=== PATIENT | female | born 1965 | race Caucasian/White ===

== ENCOUNTER 2020-08-05 10:22 | Emergency (ER) | payer MEDICARE, OTHER ==
[~2020-08-05] VITALS: Ht 167.6 cm; Wt 77.1 kg
[~2020-08-05 10:22] MED LIST: ACETAMINOPHEN325 M1 PO; BACLOFEN10 MG PO; BACLOFEN5 GM PO; BISACODYL10 MG PR; BUPRENORPHINE HC2 MG SL; BUSPIRONE HCL15 MG PO; CENTRUM SILVER1 EAC3 PO; CLONAZEPAM0.5 MG; CLONAZEPAM1 MG PO; COUMADIN4 MG PO; DIGOXIN125 MCG PO; DILTIAZEM ER240 MG PO; FENTANYL1 EAC2 TD; FLOVENT HFA12 G1 INH; GABAPENTIN600 MG PO; KLOR-CON20 MEQ PO; LEVOTHYROXINE75 MCG PO; MAG-OXIDE400 MG PO; METOPROLOL TART25 MG PO; MIRALAX17 GM PO; NORCO 7.5-3251 EACH PO; ONDANSETRON HCL8 MG PO; OXYCODONE HCL5 MG PO; PRAVASTATIN SOD40 MG PO; PROTONIX40 MG PO; SENNOSIDES-DOC1 EACH PO; WARFARIN SODIUM6 MG PO; ZYPREXA10 MG PO
[2020-08-05] MEDS ORDERED: COL-RITE100 MG PO (10:44)
[2020-08-05] MEDS ORDERED: BRIMONIDINE 0.110 ML OP (10:44)
[2020-08-05] MEDS ORDERED: FUROSEMIDE20 MG PO (10:45)
== END 2020-08-05 12:55 | disposition home or self-care (01) ==
LOC: ED 10:22
DX: M79.661 Pain in right lower leg (principal); I10 Essential (primary) hypertension; I25.2 Old myocardial infarction; E03.9 Hypothyroidism, unspecified; Z87.891 Personal history of nicotine dependence; Z88.8 Allergy status to other drugs, medicaments and biological substances; Z88.5 Allergy status to narcotic agent; Z79.899 Other long term (current) drug therapy; Z79.01 Long term (current) use of anticoagulants
CPT/HCPCS: 80053; 85025; 85610; 85730; 99283

== ENCOUNTER 2022-06-12 01:20 | Emergency (ER) | payer MEDICARE, OTHER ==
[~2022-06-12] VITALS: Ht 167.6 cm; Wt 64.0 kg
[~2022-06-12 01:20] MED LIST changes: +BRIMONIDINE 0.110 ML OP; +COL-RITE100 MG PO; +FUROSEMIDE20 MG PO
[2022-06-12] MEDS ORDERED: ULTRAM50 MG PO (02:51)
== END 2022-06-12 03:26 | disposition home or self-care (01) ==
LOC: ED 01:20
DX: S00.83XA Contusion of other part of head, initial encounter (principal); I25.2 Old myocardial infarction; I10 Essential (primary) hypertension; F31.9 Bipolar disorder, unspecified; I48.92 Unspecified atrial flutter; M25.562 Pain in left knee; I69.351 Hemiplegia and hemiparesis following cerebral infarction affecting right dominant side; E03.9 Hypothyroidism, unspecified; R13.0 Aphagia; Z87.891 Personal history of nicotine dependence; Z95.0 Presence of cardiac pacemaker; Z79.01 Long term (current) use of anticoagulants; Z79.899 Other long term (current) drug therapy; Z86.711 Personal history of pulmonary embolism; Z86.718 Personal history of other venous thrombosis and embolism; Z88.5 Allergy status to narcotic agent; W05.0XXA Fall from non-moving wheelchair, initial encounter; Y92.129 Unspecified place in nursing home as the place of occurrence of the external cause
CPT/HCPCS: 36415; 70450; 72125; 73560; 80053; 81003; 84703; 85025; 85610; 87502; 96374; 99284-25; A9270; J2270; U0003

== ENCOUNTER 2022-07-29 22:12 | Emergency (ER) | payer MEDICARE, OTHER ==
[~2022-07-29] VITALS: Ht 167.6 cm; Wt 64.0 kg
[~2022-07-29 22:12] MED LIST changes: +ULTRAM50 MG PO
[2022-07-29] MEDS ORDERED: BENZTROPINE ME0.5 MG PO (23:03)
[2022-07-29] MEDS ORDERED: FLUPHENAZINE HC10 MG PO (23:05)
[2022-07-29] MEDS ORDERED: OLANZAPINE15 MG PO (23:06)
[2022-07-29] MEDS ORDERED: OLANZAPINE5 MG PO (23:07)
[2022-07-29] MEDS ORDERED: TRAZODONE HCL50 MG PO (23:09)
[2022-07-29] MEDS ORDERED: WARFARIN SODIUM4 MG PO (23:09)
== END 2022-07-30 00:50 | disposition home or self-care (01) ==
LOC: ED 22:12
DX: T14.8XXA Other injury of unspecified body region, initial encounter (principal); W17.89XA Other fall from one level to another, initial encounter; I25.2 Old myocardial infarction; I10 Essential (primary) hypertension; I48.92 Unspecified atrial flutter; E03.9 Hypothyroidism, unspecified; Z87.891 Personal history of nicotine dependence; Z88.8 Allergy status to other drugs, medicaments and biological substances; Z88.5 Allergy status to narcotic agent; Z79.899 Other long term (current) drug therapy; Z79.01 Long term (current) use of anticoagulants; R07.81 Pleurodynia; M54.6 Pain in thoracic spine; M54.2 Cervicalgia
CPT/HCPCS: 36415; 70450; 71260; 72125; 74177; 80053; 85025; 86850; 86870; 86900; 86901; 99284-25; G0480; Q9967

== ENCOUNTER 2023-02-08 19:43 | Emergency (ER) | payer MEDICARE, OTHER ==
[~2023-02-08] VITALS: Ht 167.6 cm; Wt 64.0 kg
--- OUTSIDE RECORDS SUMMARY | ~2023-02-08 | XMS | Continuity of Care Document ---
Demographics + + + | Address | [address] | | | [place] [address] | + + + | Preferred Language | Unknown | + + + | Marital Status | | + + + | Synagogue Affiliation | Unknown | + + + | Race | White | + + + | Ethnic Group | Not or | + + + Author + + + | Author | [facility] | + + + | Organization | [facility] | + + + | Address | [address] | | | [place] [address] | + + + | Phone | | + + + Care Team Providers + + + + | [facility] Name | Role | Phone | + + + + Unavailable | Unavailable | + + + + Allergies No information. Encounters No information. Functional Status No information. Immunizations No information. Medications No information. 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 Results/Labs No information. Social History +--------+ + + | date | description | facility | +--------+ + + Vital Signs No information."
[~2023-02-08 19:43] MED LIST changes: +BENZTROPINE ME0.5 MG PO; +FLUPHENAZINE HC10 MG PO; +OLANZAPINE15 MG PO; +OLANZAPINE5 MG PO; +TRAZODONE HCL50 MG PO; +WARFARIN SODIUM4 MG PO
--- OUTSIDE RECORDS SUMMARY | 2023-02-08 19:46 | XMS ---
PreManage Notification: CATRACHITA RUBI Security Cardiovascular Disease Specialist Events No recent Security Events currently on file CRITERIA MET - [facility] CARE PROVIDERS Priya Rashid Security Solutions Engineer/Women'S Ministry Director 01/09/2023-Current PHONE: [phone] CLAUDIA MURRY Internal Medicine 08/06/2020-Current PHONE: Unknown -Abran- Dentist: Caregivers Non Medical [facility] PHONE: [phone] Axel has no Care Guidelines for this patient. E.D. VISIT COUNT (12 MO.) [address] [facility] TOTAL 3 NOTE: Visits indicate total known visits. ED/UCC VISIT TRACKING (12 MO.) 02/08/2023 19:43 [facility] TYPE: Emergency COMPLAINT: - POSS UTI 07/29/2022 22:13 [facility] TYPE: Emergency COMPLAINT: - FALL DIAGNOSES: - Allergy status to narcotic agent - Allergy status to other drugs, medicaments and biological substances - Cervicalgia - Essential (primary) hypertension - Hypothyroidism, unspecified - half-way (current) use of anticoagulants - Old myocardial infarction - Other fall from one level to another, initial encounter - Other injury of unspecified body region, initial encounter - Other correction (current) drug therapy - Pain in thoracic spine - Pelvic and perineal pain - Personal history of nicotine dependence - Pleurodynia - Unspecified atrial flutter 06/12/2022 01:20 [facility] [place] TYPE: Emergency COMPLAINT: - HEAD INJURY DIAGNOSES: - Allergy status to narcotic agent - Aphagia - Bipolar disorder, unspecified - Contusion of other part of head, initial encounter - Essential (primary) hypertension - Fall from non-moving wheelchair, initial encounter - Hemiplegia and hemiparesis following cerebral infarction affecting right dominant side - Hypothyroidism, unspecified - half-way (current) use of anticoagulants - Old myocardial infarction - Other correction (current) drug therapy - Pain in left knee - Personal history of nicotine dependence - Personal history of other venous thrombosis and embolism - Personal history of pulmonary embolism - Presence of cardiac pacemaker - Unspecified atrial flutter - Unspecified injury of face, initial encounter - Unspecified injury of head, initial encounter - Unspecified place in half-way as the place of occurrence of the external cause INPATIENT VISIT TRACKING (12 MO.) No inpatient visits to display in this time frame [email or web address]
[2023-02-08 20:25] LABS: BILIRUBIN, URINE NEGATIVE (negative); BLOOD/HGB, URINE NEGATIVE (Negative); KETONE, URINE NEGATIVE (Negative); LEUK ESTERASE, URINE NEGATIVE (negative); NITRITE, URINE NEGATIVE (negative)
[2023-02-08 20:28] LABS: AMPHETAMINES, UR NEGATIVE (NEGATIVE); BARBITURATES, UR NEGATIVE (NEGATIVE); BENZODIAZEPINES, UR NEGATIVE (NEGATIVE); BUPRENORPHINE,UR NEGATIVE (NEGATIVE); COCAINE, UR NEGATIVE (NEGATIVE); MARIJUANA (THC), UR NEGATIVE (NEGATIVE); MDMA, UR NEGATIVE (NEGATIVE); METHADONE, UR NEGATIVE (NEGATIVE); METHAMPHETAMINE, UR NEGATIVE (NEGATIVE); OPIATES, UR NEGATIVE (NEGATIVE); OXYCODONE, UR NEGATIVE (NEGATIVE); PHENCYCLIDINE, UR NEGATIVE (NEGATIVE); TRICYCLIC ANTIDEPRESSANT, UR NEGATIVE (NEGATIVE)
[2023-02-08 20:29] LABS: EPITHELIAL CELLS, URINE SQUAMOUS 2+ /lpf (0-1+)
[2023-02-08 20:31] LABS: BACTERIA, URINE RARE /hpf (negative); CASTS, URINE NONE SEEN \\lpf; CRYSTALS, URINE NONE SEEN (0-1+); REFLEX CULTURE, URINE No (No)
[2023-02-08 20:37] LABS: HEMOGLOBIN 14.1 g/dL (12.0-18.0)
[2023-02-08 20:39] LABS: BASOPHILS 0.5 % (0-2); EOSINOPHILS 1.5 % (0-6); HEMATOCRIT 42.8 % (35.0-50.0); LYMPHOCYTES 32.4 % (24-44); MCH 31.5 (27-36); MCHC 33.1 g/dl (30-36); MCV 95.3 fl (81-99); MONOCYTES 8.9 % (0-12); NEUTROPHILS 56.7 % (39-80); PLATELET COUNT 150 K/uL (140-440); RBC 4.49 M/ul (4.3-5.7); RDW 14.2 (10.5-15.0)
[2023-02-08 21:05] LABS: ALBUMIN 3.6 g/dL (3.4-5.0); ALBUMIN/GLOBULIN RATIO 1.09 (1.1-2.4); ANION GAP 14.1 (7-21); BILIRUBIN, TOTAL 0.4 ng/dL (0.2-1.0); BUN/CREATININE RATIO 18.66 (6.0-28.6); CALCIUM 9.6 mg/dL (8.5-10.1); CREATININE, SERUM 0.75 mg/dL (0.55-1.02); POTASSIUM 4.1 mmol/L (3.5-5.1); PROTEIN, TOTAL 6.9 g/dL (6.4-8.2)
[2023-02-08 21:06] LABS: ACETAMINOPHEN 0 ug/mL (10-30); ALCOHOL, MEDICAL <3 ng/dL (<3); SALICYLATE 3.7 mg/dL (2.8-20.0)
[2023-02-09] MEDS ORDERED: CEPHALEXIN500 M1 PO (10:35)
[2023-02-09 10:37] LABS: INR 1.29 (0.80-1.30); PROTIME 15.6 Sec (11.2-14.2)
[2023-02-09] MEDS ORDERED: POTASSIUM CHLO20 ME1 (10:54)
[2023-02-09] MEDS ORDERED: LEVOTHYROXINE100 MCG (10:54)
[2023-02-09] MEDS ORDERED: BRIMONIDINE TART5 ML (10:55)
[2023-02-10 12:09] VITALS: BP 115/77
== END 2023-02-10 12:10 | disposition home or self-care (01) ==
LOC: ED 19:43
PROVIDERS: Emergency Medicine; Internal Medicine
DX: L24.A2 Irritant contact dermatitis due to fecal, urinary or dual incontinence (principal); F31.9 Bipolar disorder, unspecified; I69.351 Hemiplegia and hemiparesis following cerebral infarction affecting right dominant side; Z87.891 Personal history of nicotine dependence; Z95.0 Presence of cardiac pacemaker; Z88.5 Allergy status to narcotic agent; Z79.01 Long term (current) use of anticoagulants; Z79.899 Other long term (current) drug therapy; Z79.890 Hormone replacement therapy
CPT/HCPCS: 36415; 51702; 80053; 81001; 84443; 85025; 85610; 99285-25; A9270; G0480; J7121

== ENCOUNTER 2023-02-13 16:29 | Emergency (ER) | payer MEDICARE, OTHER ==
[~2023-02-13] VITALS: Ht 167.6 cm; Wt 64.0 kg
[~2023-02-13 16:29] MED LIST changes: +BRIMONIDINE TART5 ML; +CEPHALEXIN500 M1 PO; +LEVOTHYROXINE100 MCG; +POTASSIUM CHLO20 ME1
[2023-02-13 16:52] LABS: BASOPHILS 0.9 % (0-2); EOSINOPHILS 1.1 % (0-6); HEMOGLOBIN 13.5 g/dL (12.0-18.0); LYMPHOCYTES 41.9 % (24-44); MCH 31.4 (27-36); MONOCYTES 11.4 % (0-12); NEUTROPHILS 44.7 % (39-80); PLATELET COUNT 162 K/uL (140-440); RBC 4.32 M/ul (4.3-5.7); RDW 14.1 (10.5-15.0)
[2023-02-13 17:15] LABS: ACETAMINOPHEN 0 ug/mL (10-30); ALBUMIN 3.6 g/dL (3.4-5.0); ALBUMIN/GLOBULIN RATIO 1.09 (1.1-2.4); ALCOHOL, MEDICAL <3 ng/dL (<3); ALKALINE PHOSPHATASE 93 U/L (46-116); ALT (SGPT) 32 U/L (14-59); ANION GAP 12.9 (7-21); AST (SGOT) 45 U/L (15-37); BILIRUBIN, TOTAL 0.3 ng/dL (0.2-1.0); BUN/CREATININE RATIO 16.39 (6.0-28.6); CALCIUM 10.1 mg/dL (8.5-10.1); CARBON DIOXIDE 25 mmol/L (21-32); CHLORIDE 100 mmol/L (98-107); CREATININE, SERUM 0.61 mg/dL (0.55-1.02); GLOMERULAR FILTRATION RATE,EST 103 mL/min (>60); POTASSIUM 3.9 mmol/L (3.5-5.1); PROTEIN, TOTAL 6.9 g/dL (6.4-8.2); SALICYLATE 3.8 mg/dL (2.8-20.0); UREA NITROGEN 10 mg/dL (7-18)
[2023-02-13 18:55] LABS: BILIRUBIN, URINE NEGATIVE (negative); BLOOD/HGB, URINE NEGATIVE (Negative); KETONE, URINE NEGATIVE (Negative); LEUK ESTERASE, URINE NEGATIVE (negative); NITRITE, URINE NEGATIVE (negative)
[2023-02-13 18:59] LABS: AMPHETAMINES, UR NEGATIVE (NEGATIVE); BARBITURATES, UR NEGATIVE (NEGATIVE); BENZODIAZEPINES, UR NEGATIVE (NEGATIVE); BUPRENORPHINE,UR NEGATIVE (NEGATIVE); COCAINE, UR NEGATIVE (NEGATIVE); MARIJUANA (THC), UR NEGATIVE (NEGATIVE); MDMA, UR NEGATIVE (NEGATIVE); METHADONE, UR NEGATIVE (NEGATIVE); METHAMPHETAMINE, UR NEGATIVE (NEGATIVE); OPIATES, UR NEGATIVE (NEGATIVE); OXYCODONE, UR NEGATIVE (NEGATIVE); PHENCYCLIDINE, UR NEGATIVE (NEGATIVE); TRICYCLIC ANTIDEPRESSANT, UR NEGATIVE (NEGATIVE)
[2023-02-13 19:46] LABS: INFLUENZA B NAA NEGATIVE (NEGATIVE); RESPIRATORY SYNCYTIAL VIR NAA NEGATIVE (NEGATIVE)
--- OUTSIDE RECORDS SUMMARY | 2023-02-15 11:13 | XMS ---
PreManage Notification: CATRACHITA RUBI Security Planishing Hammer Operator Events No recent Security Events currently on file CRITERIA MET - [facility] - [facility] - 2 Visits in 30 Days CARE PROVIDERS Priya Rashid Quality Assurance Supervisor Body/Beverage Distiller 01/09/2023-Current PHONE: [phone] CLAUDIA MURRY Internal Medicine 08/06/2020-Current PHONE: Unknown -Abran- Dentist: [facility] PHONE: [phone] Axel has no Care Guidelines for this patient. E.D. VISIT COUNT (12 MO.) [address] [facility] TOTAL 4 NOTE: Visits indicate total known visits. ED/UCC VISIT TRACKING (12 MO.) 02/13/2023 16:29 [facility] TYPE: Emergency COMPLAINT: - PSYCH EVENT 02/08/2023 19:43 [facility] TYPE: Emergency COMPLAINT: - POSS UTI DIAGNOSES: - Allergy status to narcotic agent - Bipolar disorder, unspecified - Dysuria - Hemiplegia and hemiparesis following cerebral infarction affecting right dominant side - Hormone replacement therapy - Irritant contact dermatitis due to fecal, urinary or dual incontinence - exterminator termite (current) use of anticoagulants - Other detention (current) drug therapy - Personal history of nicotine dependence - Presence of cardiac pacemaker 07/29/2022 22:13 [facility] TYPE: Emergency COMPLAINT: - FALL DIAGNOSES: - Allergy status to narcotic agent - Allergy status to other drugs, medicaments and biological substances - Cervicalgia - Essential (primary) hypertension - Hypothyroidism, unspecified - exterminator termite (current) use of anticoagulants - Old myocardial infarction - Other fall from one level to another, initial encounter - Other injury of unspecified body region, initial encounter - Other detention (current) drug therapy - Pain in thoracic [...] right dominant side - Hypothyroidism, unspecified - alf (current) use of anticoagulants - Old myocardial infarction - Other detention (current) drug therapy - Pain in left knee - Personal history of nicotine dependence - Personal history of other venous thrombosis and embolism - Personal history of pulmonary embolism - Presence of cardiac pacemaker - Unspecified atrial flutter - Unspecified injury of face, initial encounter - Unspecified injury of head, initial encounter - Unspecified place in [facility] as the place of occurrence of the external cause INPATIENT VISIT TRACKING (12 MO.) No inpatient visits to display in this time frame [email or web address]
[2023-02-15 22:48] LABS: BASOPHILS 0.4 % (0-2); HEMATOCRIT 46.1 % (35.0-50.0); HEMOGLOBIN 15.2 g/dL (12.0-18.0); MCH 31.6 (27-36); MCHC 32.9 g/dl (30-36); MCV 95.9 fl (81-99); MONOCYTES 10.8 % (0-12); NEUTROPHILS 52.8 % (39-80); PLATELET COUNT 180 K/uL (140-440); RDW 14.6 (10.5-15.0)
[2023-02-15 22:58] LABS: INR 2.8 (0.80-1.30); PROTIME 28.6 Sec (11.2-14.2)
[2023-02-15 23:03] LABS: ALBUMIN 3.1 g/dL (3.4-5.0); ALBUMIN/GLOBULIN RATIO 0.86 (1.1-2.4); ANION GAP 14.4 (7-21); BILIRUBIN, TOTAL 0.3 ng/dL (0.2-1.0); BUN/CREATININE RATIO 7.24 (6.0-28.6); CALCIUM 9.3 mg/dL (8.5-10.1); CREATININE, SERUM 0.69 mg/dL (0.55-1.02); POTASSIUM 4.4 mmol/L (3.5-5.1); PROTEIN, TOTAL 6.7 g/dL (6.4-8.2)
--- NOTE | 2023-02-16 17:39 | EKG ---
[facility] [address] [place], [place] [address] Signed Sinus tachycardia Left axis deviation Low voltage QRS Inferior infarct , age undetermined Cannot rule out Anterior infarct , age undetermined Abnormal ECG No previous ECGs available Confirmed by AMBROSE LOPEZ MD ([id number]) on 02/16/2023 5:39:46 PM Electronically Signed By: AMBROSE LOPEZ 02/16/23 1739 PATIENT NAME: CATRACHITA RUBI Electrocardiogram DATE OF : 61 PHYSICIAN: AMBROSE LOPEZ REPORT #: [id number] REPORT IS CONFIDENTIAL AND NOT TO BE RELEASED WITHOUT AUTHORIZATION
[2023-02-22 07:47] LABS: HEMOGLOBIN 14.6 g/dL (12.0-18.0); MCH 31.9 (27-36); MCHC 33.4 g/dl (30-36)
[2023-02-22 07:49] LABS: BASOPHILS 0.6 % (0-2); EOSINOPHILS 1.8 % (0-6); HEMATOCRIT 43.6 % (35.0-50.0); LYMPHOCYTES 35.6 % (24-44); MCV 95.5 fl (81-99); PLATELET COUNT 169 K/uL (140-440); RBC 4.56 M/ul (4.3-5.7); RDW 14.7 (10.5-15.0)
[2023-02-22 07:54] LABS: INR 2.33 (0.80-1.30); PROTIME 24.8 Sec (11.2-14.2)
[2023-02-22 07:58] LABS: ALBUMIN 3.7 g/dL (3.4-5.0); ANION GAP 11.7 (7-21); BILIRUBIN, TOTAL 0.3 ng/dL (0.2-1.0); BUN/CREATININE RATIO 13.33 (6.0-28.6); CALCIUM 9.7 mg/dL (8.5-10.1); CREATININE, SERUM 0.75 mg/dL (0.55-1.02); POTASSIUM 3.7 mmol/L (3.5-5.1); PROTEIN, TOTAL 7.4 g/dL (6.4-8.2)
[2023-02-27 21:18] LABS: BILIRUBIN, URINE NEGATIVE (negative); BLOOD/HGB, URINE NEGATIVE (Negative); KETONE, URINE NEGATIVE (Negative); LEUK ESTERASE, URINE NEGATIVE (negative); NITRITE, URINE NEGATIVE (negative); PH, URINE 6.5 (5-7)
[2023-03-06] MEDS ORDERED: PRAVASTATIN SOD40 MG PO (07:36)
[2023-03-06] MEDS ORDERED: CHLORPROMAZINE200 MG PO (07:36)
[2023-03-06] MEDS ORDERED: LEVOTHYROXINE125 MC1 PO (07:36)
[2023-03-06] MEDS ORDERED: OLANZAPINE15 MG PO (07:36)
[2023-03-06] MEDS ORDERED: ZYPREXA5 MG PO (07:36)
[2023-03-06] MEDS ORDERED: WARFARIN SODIUM4 MG PO (07:36)
[2023-03-06] MEDS ORDERED: METOPROLOL TA37.5 MG PO (07:36)
[2023-03-06] MEDS ORDERED: POTASSIUM CHLO20 ME1 PO (07:36)
[2023-03-06] MEDS ORDERED: THEREMS-M TABL1 EACH PO (07:36)
[2023-03-06] MEDS ORDERED: BACLOFEN5 MG PO (07:36)
[2023-03-06] MEDS ORDERED: BUSPIRONE HCL15 MG PO (07:36)
[2023-03-06] MEDS ORDERED: OLANZAPINE7.5 MG PO (07:36)
[2023-03-06] MEDS ORDERED: BENZTROPINE ME0.5 MG PO (07:36)
[2023-03-06] MEDS ORDERED: TRAZODONE HCL50 MG PO (07:36)
[2023-03-06] MEDS ORDERED: FLUPHENAZINE HC10 MG PO (07:36)
[2023-03-06] MEDS ORDERED: MIRALAX17 GM PO (07:36)
[2023-03-06] MEDS ORDERED: GABAPENTIN600 MG PO (07:36)
[2023-03-06 08:56] VITALS: BP 106/72
== END 2023-03-06 08:58 | disposition home or self-care (01) ==
LOC: ED 16:29
PROVIDERS: Emergency Medicine; Family Medicine
DX: F31.12 Bipolar disorder, current episode manic without psychotic features, moderate (principal); R00.0 Tachycardia, unspecified; I48.92 Unspecified atrial flutter; I69.351 Hemiplegia and hemiparesis following cerebral infarction affecting right dominant side; I10 Essential (primary) hypertension; I25.2 Old myocardial infarction; E03.9 Hypothyroidism, unspecified; Z20.822 Contact with and (suspected) exposure to COVID-19; Z79.01 Long term (current) use of anticoagulants; Z95.0 Presence of cardiac pacemaker; Z88.8 Allergy status to other drugs, medicaments and biological substances; Z79.890 Hormone replacement therapy; Z79.899 Other long term (current) drug therapy
CPT/HCPCS: 36415; 51701; 51798; 80053; 81003; 84439; 84443; 85025; 85610; 87502; 97162; 97530; 99284-25; A9270; C9803; G0480; J7030; J7121; U0002